=== PATIENT | male | born 1975 | race Caucasian/White ===

== ENCOUNTER 2016-08-04 08:01 | Emergency (ER) | payer BC ==
[2016-08-04 08:22] VITALS: BP 121/89
[2016-08-04] MEDS ORDERED: Ibuprofen TAB* 600 MG PO ONE (08:23)
--- NOTE | 2016-08-04 09:00 | UC ---
Abdominal Pain Male HPI - HPI Summary HPI Summary: 2 DAYS OF WORSENING RLQ/GROIN PAIN. RADIATES TO RIGHT LOW BACK AND INTO SCROTUM. NO FEVER, N/V. NO URINARY SX. PT NOT CONCERNED ABOUT STD. HAS H/O BILATERAL INGUINAL HERNIA A YOUNG CHILD. - History of Current Complaint Chief Complaint: UCAbdominalPain Stated Complaint: GROIN PAIN Time Seen by Provider: 08/04/16 08:23 Hx Obtained From: Patient Onset/Duration: Sudden Onset, Lasting Days, Still Present Timing: Constant Severity Initially: Mild Severity Currently: Moderate Pain Intensity: 8 Pain Scale Used: 0-10 Numeric Location: Discrete At: RLQ Radiates: Yes Radiates to: Back, Inguinal Character: Aching, Sharp Aggravating Factor(s):: Movement Alleviating Factor(s): Position Associated Signs And Symptoms: Positive: Back Pain. Negative: Diaphoresis, Fever, Cough, Chest Pain, Dizzy, Constipation, Blood in Stool, Urinary Symptoms , Decreased Appetite, Nausea, Vomiting, Diarrhea, Penile Discharge - Allergies/Home Medications Allergies/Adverse Reactions: Allergies Allergy/AdvReac Type Severity Reaction Status Date / Time No Known Allergies Allergy Verified 09/22/15 07:23 Home Medications: Home Medications Hydrocodone-Acetaminophen [Vicodin 5-300 mg] 1 tab PO PRN 08/04/16 [History] PMH/Surg Hx/FS Hx/Imm Hx Previously Healthy: Yes - Surgical History Surgical History: Yes Surgery Procedure, Year, and Place: right ankle - tendon replacement. HERNIA - Family History Known Family History: Positive: None Negative: Cardiac Disease, Hypertension, Diabetes - Social History Alcohol Use: None Substance Use Type: None Smoking Status (MU): Never Smoked Tobacco Have You Smoked in the Last Year: No Review of Systems Constitutional: Negative Skin: Negative Respiratory: Negative Cardiovascular: Negative Gastrointestinal: Abdominal Pain - RLQ Genitourinary: Other - RIGHT GROIN PAIN All Other Systems Reviewed And Are Negative: Yes Physical Exam Triage Information Reviewed: Yes Appearance: Well-Appearing, No Pain Distress, Well-Nourished Vital Signs: Initial Vital Signs Temp 98.2 F 08/04/16 08:16 Pulse 53 08/04/16 08:16 Resp 16 08/04/16 08:16 BP 121/89 08/04/16 08:16 Pulse Ox 100 08/04/16 08:16 Vital Signs Reviewed: Yes Eyes: Positive: Conjunctiva Clear ENT: Positive: Hearing grossly normal Neck: Positive: Supple Respiratory: Positive: No respiratory distress, No accessory muscle use Cardiovascular: Positive: Pulses Normal Abdomen Description: Positive: Soft, Guarding - VOLUNTARY, Other: - TTP RLQ. NO REBOUND OR RIGIDITY. Negative: CVA Tenderness (R), CVA Tenderness (L), Distended, Hernia @ - NO PALPABLE HERNIA Bowel Sounds: Positive: Present Musculoskeletal: Positive: No Edema Neurological: Positive: Alert Psychological: Positive: Age Appropriate Behavior Skin: Negative: rashes Diagnostics - Laboratory Diagnostic Studies Completed/Ordered: URINE DIP NEGATIVE - Radiology LIMITED ABD US Xray Interpretation: No Acute Changes Radiology Interpretation Completed By: Radiologist Abd Pain Male Course/Dx - Differential Dx/Clinical Impression Differential Diagnosis/HQI/PQRI: Appendicitis, Epididymitis, Other - HERNIA Provider Diagnoses: RLQ/GROIN PAIN - Physician Notification/Consults Discussed Patient Care With: VU UREÑA Time Discussed With Above Provider: 09:50 Instructed by Provider To: Transfer - [place] [facility] [place] [facility] Discharge - Discharge Plan Condition: Stable Disposition: [facility]ANS [facility] Referrals: No Primary Care Phys,NOPCP [Primary Care Provider] -
--- NOTE | 2016-08-04 10:03 | RAD ---
Indication: RIGHT lower quadrant/groin pain. Assess for potential hernia. Comparison: No relevant prior exams available on the [facility] PACS. Technique: Superficial RIGHT lower quadrant and RIGHT groin ultrasound performed with the patient supine and standing without and with Valsalva maneuver. Report: No RIGHT inguinal or femoral hernia visualized. The RIGHT common femoral artery and vein demonstrate flow on color Doppler. No soft tissue plane lesions evident. IMPRESSION: No evidence for RIGHT groin hernia.
== END 2016-08-04 09:59 | disposition left against medical advice (07) ==
LOC: UCEAST 08:01
DX: R10.31 Right lower quadrant pain (principal); M54.5 Low back pain; N50.82 Scrotal pain
CPT/HCPCS: 76705; 81002; 99212; A9270-GY; G0463

== ENCOUNTER 2016-08-04 11:13 | Emergency (ER) | payer BC ==
[2016-08-04] MEDS ORDERED: NS 0.9% 1000 ML* 1,000 ML IV ONE (14:25)
[2016-08-04 14:45] LABS: Hematocrit 46 % (42-52); Hemoglobin 15.6 g/dl (14.0-18.0); Mean Corpuscular HGB Conc 34 g/dl (31-36); Mean Corpuscular Hemoglobin 30 pg (27-31); Mean Corpuscular Volume 88 fL (80-94); Mean Platelet Volume 9 um3 (7.4-10.4); Red Blood Count 5.27 10^6/ul (4.0-5.4); Red Cell Distribution Width 13 % (10.5-15); White Blood Count 6.5 10^3/ul (3.5-10.8)
[2016-08-04 14:52] LABS: Urine Bilirubin Negative (Negative); Urine Glucose Negative (Negative); Urine Nitrite Negative (Negative)
[2016-08-04 15:01] LABS: Albumin 4.8 g/dL (3.2-5.2); BUN/Creatinine Ratio 18.1 (8-20); C Reactive Protein 1.22 mg/L (< 5.00); Calcium 10.2 mg/dL (8.6-10.3); EGFR African American 113.7 (>60); EGFR Non-African American 88.4 (>60); Globulin 2.6 g/dL (2-4); Potassium 3.7 mmol/L (3.5-5.0); Total Bilirubin 0.8 mg/dL (0.2-1.0); Total Protein 7.4 g/dL (6.4-8.9)
[2016-08-04] MEDS ORDERED: Iohexol 300* (CONTRAST) 10 ML SDV IV ONE (16:10)
--- NOTE | 2016-08-04 17:17 | RAD ---
Indication: Right lower quadrant pain. CT of the abdomen and pelvis was performed after oral and IV contrast administration. Coronal and sagittal reconstructed images were obtained. Administered 87.8 ml of OMNIPAQUE 300 mgi/ml was given according to hospital protocol. Lung bases demonstrate no pleural fluid, nodules or masses. Heart is of normal size without evidence of pericardial effusion. Liver is normal in size. There are no focal lesions or intrahepatic duct dilatation noted. The gallbladder demonstrates no calcified gallstones. No pericholecystic fluid or wall thickening is identified. The common duct is not dilated. The spleen is normal in size. No adrenal lesions are noted. The kidneys demonstrate symmetric nephrograms without focal lesions. No retroperitoneal lymphadenopathy is noted. The pancreas demonstrates no mass or pancreatic duct dilatation. Common duct is also dilated. Small bowel demonstrates no abnormal dilatation. Urinary bladder demonstrates distention without focal wall thickening. Prostate and seminal vesicles are unremarkable. Retrocecal appendix with air noted. No evidence of appendicitis is noted. No free fluid is noted in the pelvis. IMPRESSION: NORMAL RETROCECAL APPENDIX. DISTENDED URINARY BLADDER. NO ABNORMAL MASSES OR FLUID COLLECTIONS ARE NOTED.
[2016-08-04] MEDS ORDERED: Ketorolac INJ* 30 MG/ML 1 ML VIAL IV PUSH ONE (17:32)
--- NOTE | 2016-08-04 17:33 | ED ---
Ron Enamorado Adam, scribed for Edmund Zaldivar MD on 08/04/16 at 1433 . Abdominal Pain/Male - HPI Summary HPI Summary: Pt is a 41 year old male presenting with abdominal pain that set on 2 days ago. The pain is located in the lower abdomen/groin region and is an 8/10 in severity. Pt's last PO intake was last night and his last BM was yesterday afternoon. He is passing gas. He denies N/V/D and constipation. Pt states that he has never had this pain before. PMHx of inguinal hernia. - History of Current Complaint Chief Complaint: EDAbdPain Stated Complaint: ABD PAIN/SENT CONV CARE Time Seen by Provider: 08/04/16 14:23 Hx Obtained From: Patient Onset/Duration: Gradual Onset, Lasting Days, Still Present Timing: Constant, Lasting Days Severity Initially: Moderate Severity Currently: Moderate Pain Intensity: 8 Pain Scale Used: 0-10 Numeric Location: Suprapubic, Groin Radiates: No Aggravating Factor(s): Nothing Alleviating Factor(s): Nothing Associated Signs And Symptoms: Negative: Constipation, Nausea, Vomiting, Diarrhea - Allergies/Home Medications Allergies/Adverse Reactions: Allergies Allergy/AdvReac Type Severity Reaction Status Date / Time No Known Allergies Allergy Verified 08/04/16 11:20 PMH/Surg Hx/FS Hx/Imm Hx - Surgical History Surgery Procedure, Year, and Place: right ankle - tendon replacement. HERNIA Infectious Disease History: No Infectious Disease History: Denies: History Other Infectious Disease, Traveled Outside the [place] in Last 30 Days - Family History Known Family History: Negative: Cardiac Disease, Hypertension, Diabetes - Social History Occupation: Employed Full-time Lives: With Family - Alcohol Use: None Hx Substance Use: No Substance Use Type: Reports: None Hx Tobacco Use: No Smoking Status (MU): Never Smoked Tobacco Have You Smoked in the Last Year: No Review of Systems Constitutional: Negative Negative: Fever Positive: Abdominal Pain. Negative: Vomiting, Diarrhea, Nausea All Other Systems Reviewed And Are Negative: Yes Physical Exam - Summary Physical Exam Summary: VITAL SIGNS: Reviewed. GENERAL: Patient is a well developed and nourished male who is lying comfortable in the stretcher. Patient is not in any acute respiratory distress. HEAD AND FACE: Normocephalic and atraumatic. EYES: PERRLA, EOMI x 2, No injected conjunctiva. EARS: Hearing grossly intact. Ear canals and tympanic membranes are WNL. MOUTH: Oropharynx within normal limits. NECK: Supple, trachea is midline, no adenopathy, no JVD. CHEST: Symmetric, no tenderness at palpation LUNGS: Clear to auscultation bilaterally. No wheezing or crackles. CVS: RRR,, S1 and S2 present, no murmurs or gallops appreciated. ABDOMEN: Soft, mild RLQ tenderness. No signs of distention. Positive bowel sounds. No rebound no guarding, and no masses palpated. No abdominal bruit or pulsations. EXTREMITIES: FROM in all major joints, no edema, no cyanosis or clubbing. NEURO: Alert and oriented x 3. No acute neurological deficits. Speech is normal. SKIN: Dry and warm Triage Information Reviewed: Yes Vital Signs On Initial Exam: Initial Vitals Temp Pulse Resp BP Pulse Ox 98.4 F 63 16 126/68 100 08/04/16 11:20 08/04/16 11:20 08/04/16 11:20 08/04/16 11:20 08/04/16 11:20 Vital Signs Reviewed: Yes Diagnostics - Vital Signs Vital Signs Temp Pulse Resp BP Pulse Ox 08/04/16 11:20 98.4 F 63 16 126/68 100 - Laboratory Lab Results: Lab Results 08/04/16 08/04/16 08/04/16 Range/Units 14:30 14:30 14:30 WBC 6.5 (3.5-10.8) 10^3/ul RBC 5.27 (4.0-5.4) 10^6/ul Hgb 15.6 (14.0-18.0) g/dl Hct 46 (42-52) % MCV 88 (80-94) fL MCH 30 (27-31) pg MCHC 34 (31-36) g/dl RDW 13 (10.5-15) % Plt Count 218 (150-450) 10^3/ul MPV 9 (7.4-10.4) um3 Neut % (Auto) 48.4 (38-83) % Lymph % (Auto) 43.0 (25-47) % Sumner % (Auto) 6.5 (1-9) % Eos % (Auto) 1.5 (0-6) % Baso % (Auto) 0.6 (0-2) % Absolute Neuts (auto) 3.2 (1.5-7.7) 10^3/ul Absolute Lymphs (auto) 2.8 (1.0-4.8) 10^3/ul Absolute Monos (auto) 0.4 (0-0.8) 10^3/ul Absolute Eos (auto) 0.1 (0-0.6) 10^3/ul Absolute Basos (auto) 0 (0-0.2) 10^3/ul Absolute Nucleated RBC 0.01 10^3/ul Nucleated RBC % 0.1 Sodium 136 (133-145) mmol/L Potassium 3.7 (3.5-5.0) mmol/L Chloride 102 (101-111) mmol/L Carbon Dioxide 27 (22-32) mmol/L Anion Gap 7 (2-11) mmol/L BUN 17 (6-24) mg/dL Creatinine 0.94 (0.67-1.17) mg/dL Est GFR ( Amer) 113.7 (>60) Est GFR (Non-Af Amer) 88.4 (>60) BUN/Creatinine Ratio 18.1 (8-20) Glucose 92 (70-100) mg/dL Lactic Acid (0.5-2.0) mmol/L Calcium 10.2 (8.6-10.3) mg/dL Total Bilirubin 0.80 (0.2-1.0) mg/dL AST 28 (13-39) U/L ALT 24 (7-52) U/L Alkaline Phosphatase 64 (34-104) U/L C-Reactive Protein 1.22 (< 5.00) mg/L Total Protein 7.4 (6.4-8.9) g/dL Albumin 4.8 (3.2-5.2) g/dL Globulin 2.6 (2-4) g/dL Albumin/Globulin Ratio 1.8 (1-3) Amylase 64 (29-103) U/L Lipase 15 (11.0-82.0) U/L Urine Color Yellow Urine Appearance Clear Urine pH 5.0 (5-9) Ur Specific Elgin 1.013 (1.010-1.030) Urine Protein Negative (Negative) Urine Ketones Trace H (Negative) Urine Blood Negative (Negative) Urine Nitrate Negative (Negative) Urine Bilirubin Negative (Negative) Urine Urobilinogen Negative (Negative) Ur Leukocyte Esterase Negative (Negative) Urine Glucose Negative (Negative) 08/04/16 Range/Units 14:30 WBC (3.5-10.8) 10^3/ul RBC (4.0-5.4) 10^6/ul Hgb (14.0-18.0) g/dl Hct (42-52) % MCV (80-94) fL MCH (27-31) pg MCHC (31-36) g/dl RDW (10.5-15) % Plt Count (150-450) 10^3/ul MPV (7.4-10.4) um3 Neut % (Auto) (38-83) % Lymph % (Auto) (25-47) % Sumner % (Auto) (1-9) % Eos % (Auto) (0-6) % Baso % (Auto) (0-2) % Absolute Neuts (auto) (1.5-7.7) 10^3/ul Absolute Lymphs (auto) (1.0-4.8) 10^3/ul Absolute Monos (auto) (0-0.8) 10^3/ul Absolute Eos (auto) (0-0.6) 10^3/ul Absolute Basos (auto) (0-0.2) 10^3/ul Absolute Nucleated RBC 10^3/ul Nucleated RBC % Sodium (133-145) mmol/L Potassium (3.5-5.0) mmol/L Chloride (101-111) mmol/L Carbon Dioxide (22-32) mmol/L Anion Gap (2-11) mmol/L BUN (6-24) mg/dL Creatinine (0.67-1.17) mg/dL Est GFR ( Amer) (>60) Est GFR (Non-Af Amer) (>60) BUN/Creatinine Ratio (8-20) Glucose (70-100) mg/dL Lactic Acid 1.0 (0.5-2.0) mmol/L Calcium (8.6-10.3) mg/dL Total Bilirubin (0.2-1.0) mg/dL AST (13-39) U/L ALT (7-52) U/L Alkaline Phosphatase (34-104) U/L C-Reactive Protein (< 5.00) mg/L Total Protein (6.4-8.9) g/dL Albumin (3.2-5.2) g/dL Globulin (2-4) g/dL Albumin/Globulin Ratio (1-3) Amylase (29-103) U/L Lipase (11.0-82.0) U/L Urine Color Urine Appearance Urine pH (5-9) Ur Specific Elgin (1.010-1.030) Urine Protein (Negative) Urine Ketones (Negative) Urine Blood (Negative) Urine Nitrate (Negative) Urine Bilirubin (Negative) Urine Urobilinogen (Negative) Ur Leukocyte Esterase (Negative) Urine Glucose (Negative) Result Diagrams: 08/04/16 14:30 08/04/16 14:30 Lab Statement: Any lab studies that have been ordered have been reviewed, and results considered in the medical decision making process. - CT A/P CT Interpretation Completed By: Radiologist - IMPRESSION: NORMAL RETROCECAL APPENDIX. DISTENDED URINARY BLADDER. NO ABNORMAL MASSES OR FLUID COLLECTIONS ARE NOTED. - EKG 16:07 Cardiac Rate: Bradycardia - 36 BPM EKG Rhythm: Sinus Bradycardia EKG Interpretation: No ST elevations Abdominal Pain Fem Course/Dx - Course Assessment/Plan: Pt is a 41 year old male presenting with abdominal pain that set on 2 days ago. The pain is located in the lower abdomen/groin region and is an 8/10 in severity. Pt's last PO intake was last night and his last BM was yesterday afternoon. He is passing gas. He denies N/V/D and constipation. Blood work WNL. Abdominal and pelvic CT impression: normal retrocecal appendix. Distended urinary bladder. No abnormal masses or fluid collection. In the ED he has been stable. He was given Toradol for pain. I discussed all the findings and test results with the patient and patient. Patient was instructed to return to the emergency room immediately if any of the symptoms return or worsens. They understand and agree. They were explained the possibility of an early abdominal pathology which was not detected at this time despite the physical exam and testing. They understand and agree. Abdominal exam before discharge: Soft,NT. No signs of distention. BS present. No rebound no guarding, and no masses palpated. Patient is alert and oriented. Patient is hemodynamically stable. Patient is to follow up with primary care physician in the next 24 hours. Patient and patients parents agree and understands. - Diagnoses Differential Diagnosis/HQI/PQRI: Appendicitis, Constipation, Diverticulitis, Renal Colic, Ureteral Stone Provider Diagnoses: Abdominal pain Discharge - Discharge Plan Condition: Stable Disposition: HOME Patient Education Materials: Abdominal Pain (ED) [place] [facility] [place] [Outside] Additional Instructions: [place] [facility] [place]. The documentation as recorded by the Ron evans Adam accurately reflects the service I personally performed and the decisions made by Zen moe Walter, MD.
[2016-08-04 18:00] VITALS: BP 114/62
== END 2016-08-04 17:57 | disposition home or self-care (01) ==
LOC: ED 11:13
DX: R10.30 Lower abdominal pain, unspecified (principal)
CPT/HCPCS: 36415; 74177; 76705; 80053; 81002; 81003; 82150; 83605; 83690; 85025; 86140; 93005; 96361; 96374; 99212; 99284; A9270-GY; G0463; Q9967

== ENCOUNTER 2018-07-21 08:03 | Emergency (ER) | payer BC ==
--- OUTSIDE RECORDS SUMMARY | 2018-07-21 08:33 | XMS REPORT | Continuity of Care Document ---
:1975 External Reference #:[id number] Author Name Jonas Victoria Care Team Providers Name Role Phone Edmund Stone III, MD Primary Care Physician Unavailable Payers Type Date Identification Numbers Payment Provider Subscriber Policy Number: [id number] [employer] Bony More PayID: [id number] [address] [address] [place] [address] Expires: 2018 Policy Number: [id number] [facility] Elbert More PayID: [id number] [address] [place] [address] Effective: 2013 Policy Number: [id number] [employer] Bony More Onset: 2013 PayID: [id number] [address] [place] [address] Advance Directives Description No Information Available Problems Description No Active Problems Family History Description No Information Available Social History Type Date Description Comments Sex Unknown ETOH Use Denies alcohol use Tobacco Use Start: Unknown Nonsmoker Smoking Status Reviewed: 07/03/18 Nonsmoker Exercise Type/Frequency Exercises regularly Allergies, Adverse Reactions, Alerts Description No Known Drug Allergies Medications Medication Date Status Form Strength Qnty SIG Indications Ordering Provider No Active Active Unknown Medications 018 No Active Hx Unknown Medications 016 - 016 Benzonatate Hx Capsules 100mg 30caps 1-2 tab J06.9 Edmund Yee 016 - by mouth Bertha, three M.D. 018 times a day as needed Epipen 2-Varinder Hx Device 0.3mg/0.3M 2units sc prn 995.3 Elissa 013 - L Rosa, M.D., FACP 016 Proventil HFA 06/19/2 Hx Aerosol 108(90Base 1units 1-2 995.3 Elissa 013 - ) mcg/Act puffs Rosa, four M.D., FACP 016 times a day as needed Azithromycin Hx Tablets 250mg 6tabs two tabs 382.9 Elissa 011 - day one, Rosa, one M.D., FACP 011 daily till gone Sudafed 12 Hour 00/00/0 Hx Tablets ER 120mg 10tabs 1 po bid Unknown 000 - 12HR 016 Immunizations CPT Code Status Date Vaccine Lot # [id number] Given 10/14/2009 Influenza Virus Vaccine, Pandemic Formulation 28074 Given 10/14/2009 Administration Swine Flu Shot Vital Signs Date Vital Result Comment 07/03/2018 3:44pm Height 68.5 inches 5'8.50" Weight 145.00 lb Heart Rate 71 /min BP Systolic 123 mmHg BP Diastolic 76 mmHg Body Temperature 97.8 F O2 % BldC Oximetry 97 % BMI (Body Mass Index) 21.7 kg/m2 05/11/2016 2:34pm Height 68.5 inches 5'8.50" Weight 141.00 lb Heart Rate 68 /min BP Systolic 107 mmHg BP Diastolic 72 mmHg Body Temperature 97.5 F O2 % BldC Oximetry 97 % BMI (Body Mass Index) 21.1 kg/m2 01/10/2013 12:54pm Weight 146.00 lb Heart Rate 56 /min BP Systolic Sitting 112 mmHg BP Diastolic Sitting 58 mmHg 01/05/2013 11:21am Height 68.5 inches 5'8.50" Weight 144.50 lb Heart Rate 48 /min BP Systolic Sitting 134 mmHg BP Diastolic Sitting 76 mmHg BMI (Body Mass Index) 21.6 kg/m2 06/14/2011 1:29pm Height 69 inches 5'9" Weight 142.00 lb Heart Rate 60 /min BP Systolic Sitting 110 mmHg L BP Diastolic Sitting 62 mmHg L Body Temperature 98.5 F BMI (Body Mass Index) 21.0 kg/m2 Results Description No Information Available Procedures Date Code Description Status 10/14/2009 55136 EKG Tracing & Interpretation Completed Encounters Type Date Location Provider Dx Diagnosis Office Visit 05/11/2016 [facility] Edmund Yee J06.9 Acute upper 2:20p Medicine - Bertha, M.D. respiratory [place] infection, unspecified Office Visit 01/10/2013 [facility] Elissa Lee, 995.3 Allergy Unspec 1:00p Kenneth Sosa M.D., FACP [place] Office Visit 01/05/2013 [facility] Edmund Yee 841.9 Sprains & Strains 11:00a Kenneth Stone M.D. Elbow & Forearm [place] Unspec Office Visit 06/14/2011 DO Not Use Penny Johnson, 382.9 Otitis [facility]/14/2009 DO Not Use Elissa Lee, V70.0 Examination General 1:30p Solitario Gonzales, FACP Medical Routine [facility] 272.4 Hyperlipidemia Other Unspec V04.81 Need For Prophylactic Vaccination & Inoculation/Influenza Plan of Treatment 07/03/2018 - Melvin Fontana, NPR10.9 Unspecified abdominal painComments:I am ordering some bloodwork to further evaluate.R19.03 Right lower quadrant abdominal swelling, mass and lumpZ13.220 Encounter for screening for lipoid [id number] Encounter for screening for infections with a predominantly
--- NOTE | 2018-07-21 08:49 | ED ---
Abdominal Pain/Male - HPI Summary HPI Summary: The patient is a 43 y/o M presenting to [facility] with a chief complaint of pain and swelling in the right groin starting a month ago. He had been seeing Dr. Fontana at [facility] for this problem, and he was supposed to get a CT, but he had been unable to do so due to insurance, which is why he came to the ED. The pain is currently rated 3/10 in severity, and standing and ambulation aggravate the pain. He additionally c/o dull pain radiating to the low right back and numbness in the right upper thigh, but he denies weakness in the right leg. He has hx of two hernias, which have been surgically fixed. - History of Current Complaint Chief Complaint: EDAbdPain Stated Complaint: PAIN AND SWELLING IN GROIN Time Seen by Provider: 07/21/18 08:24 Hx Obtained From: Patient Onset/Duration: Gradual Onset, Lasting Weeks - one month, Still Present Timing: Lasting Weeks - one month Severity Initially: Moderate Severity Currently: Moderate Pain Intensity: 3 Pain Scale Used: 0-10 Numeric Location: Groin - right Radiates: Yes Radiates to: Back Character: Dull Aggravating Factor(s): Other: - standing, ambulation Alleviating Factor(s): Nothing Associated Signs And Symptoms: Positive: Back Pain - right low, Other - POSITIVE : numbness in the right upper thigh; NEGATIVE: weakness in the right leg - Allergies/Home Medications Allergies/Adverse Reactions: Allergies Allergy/AdvReac Type Severity Reaction Status Date / Time No Known Allergies Allergy Verified 07/21/18 08:20 PMH/Surg Hx/FS Hx/Imm Hx Endocrine/Hematology History: Denies: Hx Diabetes Respiratory History: Denies: Hx Asthma GI History: Reports: Other GI Disorders - two hernias - Surgical History Surgery Procedure, Year, and Place: right ankle - tendon replacement. HERNIA Infectious Disease History: No Infectious Disease History: Denies: History Other Infectious Disease, Traveled Outside the [place] in Last 30 Days - Family History Known Family History: Negative: Cardiac Disease, Hypertension, Diabetes - Social History Alcohol Use: Occasionally Hx Substance Use: No Substance Use Type: Reports: None Hx Tobacco Use: No Smoking Status (MU): Former Smoker Have You Smoked in the Last Year: No Review of Systems Positive: Abdominal Pain - swelling in right groin Positive: Other - dull low right back pain Positive: Numbness - in right upper thigh. Negative: Weakness - in the right leg All Other Systems Reviewed And Are Negative: Yes Physical Exam - Summary Physical Exam Summary: Appearance: The patient is well-nourished in no acute distress and in no acute pain. Skin: The skin is warm and dry and skin color reflects adequate perfusion. HEENT: The head is normocephalic and atraumatic. The pupils are equal and reactive. The conjunctivae are clear and without drainage. Nares are patent and without drainage. Mouth reveals moist mucous membranes and the throat is without erythema and exudate. The external ears are intact. The ear canals are patent and without drainage. The tympanic membranes are intact. Neck: The neck is supple with full range of motion and non-tender. There are no carotid bruits. There is no neck vein distension. Respiratory: Chest is non-tender. Lungs are clear to auscultation and breath sounds are symmetrical and equal. Cardiovascular: Heart is regular rate and rhythm. There is no murmur or rub auscultated. There is no peripheral edema and pulses are symmetrical and equal. Abdomen: The abdomen is soft and non-tender. There are normal bowel sounds heard in all four quadrants and there is no organomegaly palpated. Musculoskeletal: There is no back tenderness noted. Extremities are non-tender with full range of motion. There is good capillary refill. There is no peripheral edema or calf tenderness elicited. Neurological: Patient is alert and oriented to person, place and time. The patient has symmetrical motor strength in all four extremities. Cranial nerves are grossly intact. Deep tendon reflexes are symmetrical and equal in all four extremities. Psychiatric: The patient has an appropriate affect and does not exhibit any anxiety or depression. Triage Information Reviewed: Yes Vital Signs On Initial Exam: Initial Vitals Temp Pulse Resp BP Pulse Ox 98.6 F 78 16 139/86 98 07/21/18 08:18 07/21/18 08:18 07/21/18 08:18 07/21/18 08:18 07/21/18 08:18 Vital Signs Reviewed: Yes Diagnostics - Vital Signs Vital Signs Temp Pulse Resp BP Pulse Ox 07/21/18 08:18 98.6 F 78 16 139/86 98 - Laboratory Lab Statement: Any lab studies that have been ordered have been reviewed, and results considered in the medical decision making process. - CT Lumbar Spine CT CT Interpretation Completed By: Radiologist Summary of CT Findings: 1. Mild degenerative disc disease with neuroforaminal narrowing at L5-S1. There is no osseous central canal stenosis. 2. No hydronephrosis or nephrolithiasis. 3. No appreciable hernia. 4. No acute noncontrast ct pathology of the visualized abdomen or pelvis. ED physician has reviewed this report. Abd/Pel CT CT Interpretation Completed By: Radiologist Summary of CT Findings: 1. Mild degenerative disc disease with neuroforaminal narrowing at l5-s1. There is no osseous central canal stenosis. 2. No hydronephrosis or nephrolithiasis. 3. No appreciable hernia. 4. No acute noncontrast ct pathology of the visualized abdomen or pelvis. ED physician has reviewed this report. Re-Evaluation - Re-Evaluation First Eval Re-Evaluation Time: 10:45 Change: Improved Comment: I spoke with the patient concerning CT results and discharge home with a follow up with surgery. Abdominal Pain Fem Course/Dx - Course Course Of Treatment: Mr. More presented with about a month of pain and sometimes a lump in his right groin and tingling sensation over his right anterior thigh. He did have a little bit of low right-sided back pain early on. He denies any trouble urinating or moving his bowels or any weakness of his legs. His exam is generally unremarkable with no sign of a hernia or and change in neurovascular motor. CT of his low back showed some degenerative disc disease and foraminal narrowing at L5-S1 on the right. No sign of hernia. I recommended follow-up. He may have an intermittent hernia that can't be seen at this time or appreciated on my exam. He also needs follow-up with his PCP for his sciatic-type symptomatology. - Diagnoses Provider Diagnoses: Abdominal pain Discharge - Sign-Out/Discharge Documenting (check all that apply): Patient Departure - Patient will be discharged home. - Discharge Plan Condition: Stable Disposition: HOME Patient Education Materials: Abdominal Pain (ED) Referrals: Jorge Ruth MD [Medical Doctor] - Additional Instructions: Follow up with Dr. Ruth, surgery, in 2-3 days. Return to the emergency department for any new or worsening symptoms. - Billing Disposition and Condition Condition: STABLE Disposition: Home - Attestation Statements Document Initiated by Scribe: Yes Documenting Scribe: Mari Colindres Provider For Whom Scribe is Documenting (Include Credential): Dr. Bk Strickland MD Scribe Attestation: I, Mari Colindres, laureenibed for Dr. Bk Strickland MD on 07/21/18 at 1816. Scribe Documentation Reviewed: Yes Provider Attestation: The documentation as recorded by the Mari evans accurately reflects the service I personally performed and the decisions made by me, Dr. Bk Strickland MD Status of Scribe Document: Viewed
[2018-07-21 10:58] VITALS: BP 125/83
== END 2018-07-21 10:57 | disposition home or self-care (01) ==
LOC: ED 08:03
DX: R10.31 Right lower quadrant pain (principal); M54.5 Low back pain; M51.37 Other intervertebral disc degeneration, lumbosacral region; R20.0 Anesthesia of skin; Z87.891 Personal history of nicotine dependence
CPT/HCPCS: 72131; 74176; 99282